=== PATIENT | male | born 1985 | race Caucasian/White ===

== ENCOUNTER 2018-03-13 21:05 | Emergency (ER) | payer OTHER ==
[~2018-03-13 21:05] MED LIST: AMOXIL500 MG PO; BACTRIM DS 8001 TAB PO; IBU800 MG PO; KEFLEX500 MG PO
[2018-03-13 21:12] VITALS: BP 121/67
[2018-03-13] MEDS ORDERED: KEFLEX500 M1 PO (22:04)
--- NOTE | 2018-03-13 22:05 | ED GENERAL ADULT ---
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 Source: patient Exam Limitations: no limitations Vital Signs & Intake/Output Vital Signs & Intake/Output Vital Signs Date Time Temp Pulse Resp B/P B/P Pulse O2 O2 Flow FiO2 Mean Ox Delivery Rate 03/132 97.1 53 18 121/67 99 Room Air Allergies Coded Allergies: NO KNOWN ALLERGIES (03/13/18) Reconcile Medications Amoxicillin (Amoxil) 500 MG CAP 1 TAB PO BID CELLULTIIS Cephalexin (Keflex) 500 MG CAPSULE 1 CAP PO 4 TIMES/DAY cellulitis Cephalexin (Keflex) 500 MG CAPSULE 1 TAB PO TID SKIN INFECTION Ibuprofen (Ibu) 800 MG TAB 1 TAB PO Q8HR PRN PAIN Sulfamethoxazole/Trimethopri (Bactrim Ds 800 MG-160 MG) 1 TAB TAB 1 TAB PO BID CELLULITIS Triage Note: PT TO TRIAGE WITH BRUISING/SWELLING TO L RING FINGERNAIL X1 WEEK. PT STATES BANGED FINGER A WEEK AGO AND THE SWELLING WAS WORSE TODAY. NO LAC. Triage Nurses Notes Reviewed? yes Onset: Abrupt Duration: day(s): Timing: constant HPI: 32-year-old right-hand dominant otherwise healthy male presenting with injury to his left fourth digit one week ago. Patient reports that he accidentally drilled through his finger with a drill bit. Since then he has had progressively worsening redness, pain, and swelling. Denies fevers, nausea, vomiting, purulent drainage. Denies numbness or paresthesias. Unsure of his last tetanus. Past History Travel History Traveled to [place] past 21 day No Medical History Any Pertinent Medical History? 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 No Review of Systems Review of Systems Constitutional: Reports: no symptoms. EENTM: Reports: no symptoms. Respiratory: Reports: no symptoms. Cardiovascular: Reports: no symptoms. GI: Reports: no symptoms. Genitourinary: Reports: no symptoms. Musculoskeletal: Reports: see HPI. Skin: Reports: no symptoms. Neurological/Psychological: Reports: no symptoms. Hematologic/Endocrine: Reports: no symptoms. Immunologic/Allergic: Reports: no symptoms. Physical Exam Physical Exam General Appearance: well developed/nourished, no apparent distress, alert, awake , comfortable Head: atraumatic, normal appearance Eyes: Bilateral: normal appearance. Neck: normal inspection Respiratory: normal breath sounds, lungs clear Cardiovascular: regular rate/rhythm Gastrointestinal: soft, non-tender Back: normal inspection Extremities: on exam of the left fourth digit there is a subungual hematoma encompassing approximately 25% of the nail, there is a puncture wound where the subungual hematoma is actively draining, mild surrounding erythema, unrestricted range of motion at the DIP/PIP/MCP joint, sensation intact, motor strength 5 out of 5 with finger flexion, extension, and interosseous strength, radial pulses 2+ Neurologic/Psych: awake, alert, oriented x 3, normal gait, normal mood/affect Skin: intact, normal color, warm/dry Core Measures ACS in differential dx? No CVA/TIA Diagnosis: No Sepsis Present: No Sepsis Focused Exam Completed? No Progress Differential Diagnoses I considered the following diagnoses in my evaluation of the patient: [Subungual hematoma versus cellulitis versus tuft fracture] Plan of Care: Current Medications Sig/Emily Start time Last Medication Dose Stop Time Status Admin Cephalexin 500 MG ONCE ONE 03/13 2215 AC (Keflex 500MG Cap) 03/13 2216 Tetanus/Diphtheria 0.5 ML ONCE ONE 03/13 2215 AC Toxoids Adsorbed 03/13 2216 (Decavac) No indication for trephination as the subungual hematoma is already spontaneously draining. Will start on Rx Keflex for likely cellulitis that is developing to the digit. Patient declining x-ray to rule out tuft fracture. Also declining to be splinted. Tetanus updated. Counseled on supportive care and strict return precautions. Initial ED EKG: none Departure Departure Disposition: HOME OR SELF CARE Condition: Stable Clinical Impression Primary Impression: Subungual hematoma Secondary Impressions: Cellulitis Referrals: Patient Has No Primary Care Dr (PCP/Family) Additional Instructions: Take Keflex as prescribed. Follow-up with your primary care provider for reevaluation. Return to the emergency department for any new or worsening symptoms. Departure Forms: Customer Survey General Discharge Information Prescriptions: Current Visit Scripts Cephalexin (Keflex) 1 CAP PO 4 TIMES/DAY #40 CAP Critical Care Note Critical Care Note Critical Care Time: non-applicable
== END 2018-03-13 22:15 ==
LOC: ERH 21:05
DX: S60.042A Contusion of left ring finger without damage to nail, initial encounter (principal); L03.012 Cellulitis of left finger; W29.8XXA Contact with other powered hand tools and household machinery, initial encounter; Y92.9 Unspecified place or not applicable; Y93.9 Activity, unspecified
CPT/HCPCS: 90471; 90714